=== PATIENT | male | born 1975 | race Caucasian/White ===

== ENCOUNTER → 2023-04-19 07:31 | Outpatient (REF) | payer OTHER, SELFPAY | LOC: RAD 07:31 | PROVIDERS: ATTENDING PHYSICIAN Surgery; FAMILY PHYSICIAN Family Medicine | DX: K64.9 Unspecified hemorrhoids (principal) | CPT/HCPCS: 74270 ==

== ENCOUNTER → 2023-04-26 06:32 | Day surgery (SDC) | payer OTHER, SELFPAY | LOC: GI 06:32 | PROVIDERS: ATTENDING PHYSICIAN Internal Medicine | DX: K44.9 Diaphragmatic hernia without obstruction or gangrene (principal); R11.0 Nausea; K29.50 Unspecified chronic gastritis without bleeding | CPT/HCPCS: 43239; 88305; 88342 ==

== ENCOUNTER 2023-07-27 05:51 | Day surgery (SDC) | payer OTHER, SELFPAY ==
[2023-07-25 07:57] VITALS: BMI 27.3
[2023-07-27 05:53] VITALS: BMI 27.3
[2023-07-27 06:05] VITALS: BP 115/76
[2023-07-27] MEDS: NORMOSOL-R 1000 IV (06:15)
[2023-07-27 08:43] VITALS: BP 125/75
[2023-07-27 08:45] VITALS: BP 130/85
[2023-07-27 09:00] VITALS: BP 119/96
[2023-07-27 09:15] VITALS: BP 124/95
[2023-07-27] MEDS: TYLENOL 650 MG PO (09:20)
[2023-07-27 09:30] VITALS: BP 122/84
== END 2023-07-27 09:35 | disposition home or self-care (01) ==
LOC: SDS 05:51
PROVIDERS: ATTENDING PHYSICIAN Surgery; FAMILY PHYSICIAN Family Medicine
DX: K64.2 Third degree hemorrhoids (principal)
CPT/HCPCS: 46947; 88304; 36415; 93005

== ENCOUNTER 2024-03-13 06:16 | Day surgery (SDC) | payer OTHER, SELFPAY ==
[2024-03-13] VITALS (9 sets, daily range): BP systolic 114–160; BP diastolic 70–89; BMI 28.2
[2024-03-13] MEDS: TYLENOL 1000 MG PO (07:48)
[2024-03-13] MEDS: CELEBREX 200 MG PO (07:48)
[2024-03-13] MEDS: NORMOSOL-R/PLASMALYTE-A 1000 IV (07:48)
== END 2024-03-13 12:25 | disposition home or self-care (01) ==
LOC: SDS 06:16
PROVIDERS: ATTENDING PHYSICIAN Orthopaedic Surgery
DX: S46.012A Strain of muscle(s) and tendon(s) of the rotator cuff of left shoulder, initial encounter (principal); X58.XXXA Exposure to other specified factors, initial encounter
CPT/HCPCS: 29827; C1713

== ENCOUNTER 2024-04-18 06:23 | Day surgery (SDC) | payer OTHER, SELFPAY ==
[2024-04-18] VITALS (7 sets, daily range): BP systolic 97–125; BP diastolic 59–82
[2024-04-18] MEDS: TYLENOL 1000 MG PO (10:46)
[2024-04-18] MEDS: CELEBREX 200 MG PO (10:46)
[2024-04-18] MEDS: NORMOSOL-R/PLASMALYTE-A 1000 IV (10:53)
== END 2024-04-18 15:45 | disposition home or self-care (01) ==
LOC: SDS 06:23
PROVIDERS: ATTENDING PHYSICIAN Specialist
DX: T84.84XA Pain due to internal orthopedic prosthetic devices, implants and grafts, initial encounter (principal); Y83.1 Surgical operation with implant of artificial internal device as the cause of abnormal reaction of the patient, or of later complication, without mention of misadventure at the time of the procedure; Z45.89 Encounter for adjustment and management of other implanted devices
CPT/HCPCS: 20680; 73560; 76000